=== PATIENT | male | born 1990 | race Caucasian/White ===

== ENCOUNTER 2018-06-03 15:26 | Emergency (ER) | payer OTHER ==
[2018-06-03] MEDS ORDERED: LEVO-3 PO (15:32)
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
[2018-06-03] MEDS ORDERED: ONDANSETRON 4 MG/2 ML VIAL IVP ONE (15:45)
[2018-06-03] MEDS ORDERED: MORPHINE 4 MG/ML SDV IVP ONE (15:45)
[2018-06-03 15:57] LABS: PLATELET COUNT, AUTOMATED 139 K/uL (150-450)
[2018-06-03] MEDS ORDERED: NS(*) 0.9% 1000 ML BAG 1,000 ML IV ONE (16:10)
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
[2018-06-03] MEDS ORDERED: IOPAMIDOL 76% 100 ML INFUS BTL 100 ML ONE (16:35)
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
[2018-06-03] MEDS ORDERED: valACYclovir HCL 500 MG TAB PO ONE (18:50)
[2018-06-03] MEDS ORDERED: predniSONE 20 MG TAB PO ONE (18:50)
[2018-06-03] MEDS ORDERED: ACET/HYDROC 5/325MG TH ER ONLY 2 TAB/BOTTLE PO ONE (18:55)
[2018-06-03] MEDS ORDERED: APAP/HYDROCODONE 325/5 TAB PO ONE (18:55)
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
[2018-06-03] MEDS ORDERED: HYDR-385 PO (19:06)
[2018-06-03 19:21] VITALS: BP 138/82
== END 2018-06-03 19:25 | disposition home or self-care (01) ==
LOC: ER 15:29
DX: S43.102A Unspecified dislocation of left acromioclavicular joint, initial encounter (principal); S30.22XA Contusion of scrotum and testes, initial encounter; V29.40XA Motorcycle driver injured in collision with unspecified motor vehicles in traffic accident, initial encounter
CPT/HCPCS: 81001; 85025; 96361; 96374; 96375; 99285; J2270; J2405; J7030; Q9967; 82040; 82247; 82310; 82374; 82435; 82565; 82947; 84075; 84132; 84155; 84295; 84450; 84460; 84520

== ENCOUNTER → 2018-06-03 | Outpatient (CLI) | payer OTHER ==
[~2018-06-03] MED LIST: HYDR-385 PO; LEVO-3 PO
== END ==
LOC: AMB 15:05
PROVIDERS: ATTEND Nurse Practitioner
DX: R10.84 Generalized abdominal pain (principal); M25.512 Pain in left shoulder; R11.2 Nausea with vomiting, unspecified; N50.89 Other specified disorders of the male genital organs; V23.4XXA Motorcycle driver injured in collision with car, pick-up truck or van in traffic accident, initial encounter; Y92.414 Local residential or business street as the place of occurrence of the external cause
CPT/HCPCS: A0425; A0429